=== PATIENT | male | born 1990 | race African-American/Black ===

== ENCOUNTER 2025-01-07 05:41 | Emergency (ER) | payer MEDICAID ==
[~2025-01-07] VITALS: Ht 188 cm; Wt 82.0 kg
[2025-01-07 05:45] VITALS: TEMP 36.6; O2SAT 96
[2025-01-07] MEDS ORDERED: IBUP-2029 MT (06:29)
[2025-01-07] MEDS: KETOROLAC 30MG/ML VIAL IM ONE (07:13)
[2025-01-07 07:18] VITALS: BP 108/75; PULSE 56; RESP 16; O2SAT 100
== END 2025-01-07 07:20 | disposition home or self-care (01) ==
LOC: ER 05:41
DX: R51.9 Headache, unspecified (principal)
CPT/HCPCS: 99283; 96372; J1885